=== PATIENT | female | born 1955 | race Caucasian/White ===

== ENCOUNTER 2023-08-11 11:04 | Outpatient (AMB) | payer MEDICARE, SELFPAY ==
--- NOTE | 2023-08-11 11:08 | AM.OFFWIN_ITS ---
Intake Vital Signs 08/11/23 11:29 08/11/23 11:44 08/11/23 12:20 Height 5 ft 6 in Weight 150 lb BMI 24.2 BP 180/130 H 180/92 H 160/92 H Blood Pressure Location Lt brachial Rt brachial Rt brachial Position Sitting Sitting Sitting Pulse 76 Pulse Source Pulse Oximeter Temp 97.7 F Temp Source Temporal Artery Scan Pulse Oximetry (%) 99 Oxygen Delivery Method Room Air Intake Visit Reasons: [employer] Ear wax removal-both Intake Note: pt is here today for ear wax removal started 2 weeks ago Patient Tobacco Use Status: Never used Tobacco Allergies No Known Allergies Allergy (Verified 08/11/23 11:59) Medication List - Last Reconciled 08/11/23 by STANISLAV Jones lisinopril 20 mg PO DAILY Do you need a note to return to daycare/school/sports/work: No HPI HPI Comments History of Present Illness Details Patient is a 67-year-old female in today for a sick visit. Patient states she is in for diminished hearing in bilateral ears, states she has frequent cerumen buildup in her bilateral ears this feels very similar. Will order in office ear lavage Patient also had elevated blood pressure in office today. Blood pressure is recheck twice after half an hour. Last reading was 160/92. Patient denies any symptoms of headache, vision change, motor or sensory loss. Denies any chest pain or numbness. Patient is declining medication titration at this time states she will take blood pressure measurements at home has appointment with her PCP next week she will follow up on. [facility] Social History Patient Tobacco Use Status: Never used Tobacco Review of Systems Const All systems reviewed & are unremarkable except as noted in HPI and below Denies chills, Denies fever(s) and Denies headache(s) Eyes Denies diplopia and Denies eye discharge ENT Denies vertigo, Denies dizziness, Denies headache(s) and Reports other (Bilateral ear fullness) Card Denies chest pain and Denies dyspnea Resp Denies dyspnea Neuro Denies vertigo, Denies dizziness and Denies headache(s) Physical Exam Vital Signs: Last Vital Signs Temp 97.7 F 08/11/23 11:29 Pulse 76 08/11/23 11:29 BP 180/130 H 08/11/23 11:29 Pulse Ox 99 05/28/24 11:29 Oxygen Delivery Method Room Air 08/11/23 11:29 BMI result Body Mass Index 24.2 Const Other: Appearance: Alert.? Oriented X3.? No acute distress.? Head: Normocephalic, atraumatic, no step-offs or deformities Eyes: Pupils equal, round and reactive to light.?EOMI, Sclera white. ENT: Pharynx normal.?Bilateral cerumen impaction. Neck: Normal inspection.? Neck supple.? CVS: Normal heart rate and rhythm.? Pulses normal.? Respiratory: No respiratory distress.? Breath sounds normal.? Neuro: Oriented X 3.? No motor deficit.? No sensory deficit. CN 2-12 intact Post ear lavage patient TM intact and pearly caban. Orientation/consciousness: patient oriented x3 Eyes Pupils: Equal, round and reactive pupils present Neuro General: patient oriented x3 and CN's II-XI intact bilaterally Cranial nerves: Yes CN's II-XII intact bilaterally, Yes Equal, round and reactive pupils present and Yes Bilaterally intact EOM present Cognition (Neuro): normal cognition Gait exam (Neuro): Normal gait present Office Procedures Cerumen Removal From which ear canal was the cerumen removed: bilateral Removal: irrigation Notes: patient tolerated procedure well [id number] Irrigation/Lavage Assessment & Plan Assessment & Plan (1) Bilateral impacted cerumen: Comment: Cerumen impaction, removed via bilateral ear lavage. Patient tolerated with good effect. Code(s): H61.23 - Impacted cerumen, bilateral Plan: Utilize [id number] earwax softening drops. (2) Hypertension: Comment: Patient declining medication titration today. Patient states she will take blood pressure measurements at home will follow up with PCP, has appointment next week. Patient understands signs of worsening symptoms when to report to the walk-in or when to present to the ED. Code(s): I10 - Essential (primary) hypertension Qualifiers: Hypertension type: unspecified Qualified Code(s): I10 - Essential (primary) hypertension Plan: Take your medications as prescribed. If you were prescribed antibiotics today, it is important that you take your medication to their entirety, do not skip any doses, do not finish them early. Follow-up with your primary care provider this week. Return to the emergency department with new or worsening symptoms. Such as fevers, chills, chest pain, shortness of breath, nausea, vomiting, dizziness, headache, vision changes, lethargy In case of emergency call 911 Orders: Orders AMB Cerumen Removal Today H61.23 - Impacted cerumen, bilateral Coding Level of Care Code Est Pt Level 4 (25176) Diagnoses Bilateral impacted cerumen H61.23 Hypertension, unspecified type I10 Hypertension type: unspecified CPT Codes Office Procedure - CPT: 99270-Wdj Irrigation/Lavage ([id number]) Time Spent (min) 40
[2023-08-11 11:29] VITALS: BP 180/130; PULSE 76; TEMP 36.5; O2SAT 99; BMI 24.2
[2023-08-11 11:44] VITALS: BP 180/92
[2023-08-11 12:20] VITALS: BP 160/92
== END 2023-08-11 12:26 | disposition home or self-care (01) ==
PROVIDERS: PCP Internal Medicine; Visit Provider Nurse Practitioner Primary Care
DX: H61.23 Impacted cerumen, bilateral (principal); I10 Essential (primary) hypertension
CPT/HCPCS: 69209; 99214

== ENCOUNTER 2023-10-19 08:39 | Outpatient (AMB) | payer MEDICARE, SELFPAY ==
--- NOTE | 2023-10-19 09:22 | AM.OFFWIN_ITS ---
Intake Vital Signs 10/19/23 09:24 Height 5 ft 6 in Weight 69.4 kg BMI 24.7 BP 136/94 H Blood Pressure Location Lt brachial Position Sitting Pulse 74 Pulse Source Pulse Oximeter Temp 97.5 F Temp Source Temporal Artery Scan Pulse Oximetry (%) 98 Oxygen Delivery Method Room Air Intake Visit Reasons: arthritis in neck Intake Note: pt c/o neck pain, Ongoing Patient Tobacco Use Status: Never used Tobacco Allergies No Known Allergies Allergy (Verified 08/11/23 11:59) HPI arthritis in neck HPI Details Patient presents with neck pain that began this morning right side greater than left. She notes long history of similar flare-ups with either activity or sometimes just wakes up this way. 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 She has none now and is about to leave on a short vacation and could not get into her primary care. She denies headache, weakness or changes to the upper extremities. She denies acute trauma. 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 [facility] Social History Patient Tobacco Use Status: Never used Tobacco Review of Systems Const Reports as per HPI and Reports no additional complaints Eyes Reports no additional complaints Card Reports as per HPI and Reports no additional complaints Resp Reports as per HPI and Reports no additional complaints Musc Reports no additional complaints and Reports as per HPI Skin/Breast Denies lesions Neuro Reports no additional complaints and Reports as per HPI Physical Exam Vital Signs: Last Vital Signs Temp 97.5 F 10/19/23 09:24 Pulse 74 10/19/23 09:24 BP 136/94 H 10/19/23 09:24 Pulse Ox 98 10/19/23 09:24 Oxygen Delivery Method Room Air 10/19/23 09:24 BMI result Body Mass Index 24.7 Const General: cooperative, comfortable and no acute distress Orientation/consciousness: patient oriented x3 Neck Neck: Yes normal visual inspection, Yes no lymphadenopathy, Yes no meningeal signs and Yes trachea midline Resp Effort & Inspection: normal respiratory effort Auscultation: clear to auscultation bilaterally Cardio Rate: regular rate Rhythm: regular rhythm Heart sounds: S1 normal heart sound present and S2 normal heart sound present Back/Spine/Pelvis Cervical Spine: normal cervical lordosis, cervical muscular tenderness (Right greater than left of the matt cervical musc and trap palpable spasm), pain with cervical ROM (Right rotation limited to 20 degrees secondary to pain), No Cervical spine tenderness and cervical ROM abnormal Neuro Other: Strength sensation range of motion of upper extremities normal General: patient oriented x3 and no meningeal signs Assessment & Plan Assessment & Plan (1) Cervicalgia: Code(s): M54.2 - Cervicalgia Plan: Rx ibuprofen 800 t.i.d. with food. On also can trial 5 mg cyclobenzaprine q.h.s. p.r.n.. Patient home exercise program she normally does this occurs she can continue with self care with heat or ice gentle massage as tolerated activity as tolerated. Follow-up with PCP if symptoms persist. Medications: New cyclobenzaprine 5 mg PO BID PRN 10 tabs 0RF muscle spasm ibuprofen 800 mg PO TID 90 tabs 0RF Coding Level of Care Code Est Pt Level 3 (57184) Diagnoses Cervicalgia M54.2
[2023-10-19 09:24] VITALS: BP 136/94; PULSE 74; TEMP 36.4; O2SAT 98; BMI 24.7
== END 2023-10-19 10:02 | disposition home or self-care (01) ==
PROVIDERS: PCP Internal Medicine; Visit Provider Physician Assistant
DX: M54.2 Cervicalgia (principal)
CPT/HCPCS: 99213